=== PATIENT | male | born 1970 | race Caucasian/White ===

== ENCOUNTER 2017-03-31 18:22 | Inpatient (IN) | payer OTHER ==
[~2017-03-31] VITALS: Ht 188 cm; Wt 108.0 kg
[~2017-03-31 18:22] MED LIST: ADDERALL XR 3030 MG PO; ADDERALL30 MG PO; ADVIL,NUPRIN,M200 MG PO; ALPRAZOLAM2 MG PO; ATARAX,VISTARIL25 MG PO; Adderall XR PO; BUTALBITAL COM1 EAC1 PO; Bactrim,Septra DS 80 PO; CALCIUM + VITA1 EACH; CALCIUM 600 +1 EAC1 PO; CALCIUM 600 +1 EAC2 PO; CALCIUM 600 +1 EAC3 PO; CARVEDILOL25 MG PO; CATAPRES0.1 MG PO; CENTRUM SILV1 TABLE1 PO; CENTRUM SILVER1 EAC3 PO; CENTRUM SILVER1 EACH PO; CIPRO500 MG PO; CLEARLAX510 GM PO; CLONIDINE HCL0.1 MG PO; COBAL-10001000 MCG/2 IM; COREG25 M1 PO; COUMADIN10 MG PO; COUMADIN5 MG PO; CRANBERRY PO; CRANBERRY300 MG PO; CRANBERRY400 M1 PO; CRANBERRY400 MG PO; CRANBERRY500 MG; CRANBERRY500 MG PO; CYANOCOBAL1000 MCG/1 SC; CYANOCOBAL1000 MCG/2 IM; Calcium Carbonate/Vi PO; Coreg PO; Cranberry PO; DEXTROAMP-AMPHE30 MG PO; DORIBAX500 MG IV; DULCOLAX10 MG PR; DUONEB 2.5-0.5 M3 ML AEROSOL; DUONEB 2.5-0.5 M3 ML IH; DUONEB3 ML IH; DuoNeb IH; ELAVIL100 MG PO; ENEMA133 M1 RC; ESGIC 50-325-41 EACH PO; FEVERALL650 M1 PR; FIORICET 50-301 EACH PO; FIORICET,ESG1 TABLET PO; FLOMAX0.4 M1 PO; FLOMAX0.4 MG PO; Fioricet,Esgic,Repan PO; Flomax PO; GENTAMICIN IV; GUAIFENESIN WI120 M1 PO; HALDOL10 MG/5 ML PO; HYDROCHLOROTHIA25 MG PO; HYOSCYAMINE0.125 M2 PO; Hydrodiuril,Oretic,E PO; INVanz IV; K-DUR20 MEQ PO; K-Dur PO; KADIAN100 MG PO; KLOR-CON M2020 MEQ PO; Kadian PO; LEVAQUIN PO; LEVAQUIN250 MG PO; LORAZEPAM0.5 MG PO; LORAZEPAM1 MG PO; LOVENOX80 MG/0.8 SC; Levaquin PO; Lovenox SC; MACROBID100 MG PO; MAGNESIUM OXID200 MG PO; METHOCARBAMOL500 MG PO; METHYLPHENIDATE20 M1 PO; METOPROLOL SUCC50 MG PO; MIRALAX17 GM PO; MIRTAZAPINE45 MG PO; MORPHINE CON20 MG/M1 PO; MORPHINE SULFA100 M2 PO; MORPHINE SULFAT30 M1 PO; MORPHINE SULFAT30 M2 PO; MORPHINE SULFAT60 MG PO; MS Contin PO; MSIR30 MG PO; MYCOSTATIN15 G1 TP; Maxipime IV; Miralax, Glycolax PO; NEXIUM40 MG PO; OXYCODONE HCL15 MG PO; OXYCODONE HCL30 MG PO; OXYCODONE30 MG PO; OXYCONTIN30 MG PO; OxyCODONE PO; OxyCONTIN PO; PEPCID20 MG PO; PERCOCET 5/31 TABLET PO; PHENERGAN PO; PHENERGAN12.5 M1 PO; PHENERGAN25 MG PO; PROAIR HFA8.5 GM IH; PROCHLORPERAZIN10 MG PO; PROMETHAZINE HC25 M1 PO; PROTONIX40 MG PO; PROVENTIL HFA6.7 GM IH; Phenergan PO; Protonix PO; Proventil,Ventolin H IH; RANITIDINE HCL300 M1 PO; RANITIDINE HCL300 MG PO; REMERON15 M2 PO; REMERON30 M2 PO; RITALIN LA20 MG PO; RITALIN20 MG PO; RITALIN5 MG PO; ROBAXIN500 MG PO; Ritalin PO; Robaxin PO; SENNA PLUS TAB1 EACH PO; SEROQUEL XR150 MG PO; SEROQUEL XR400 MG PO; SEROQUEL XR50 MG PO; SEROQUEL100 MG PO; SEROQUEL200 MG PO; SEROQUEL300 MG PO; SEROQUEL400 MG PO; SEROQUEL50 MG PO; SEROquel PO; SIMVASTATIN40 M1 PO; SIMVASTATIN40 MG PO; SPIRIVA1 INHALATI IH; TEKTURNA150 MG PO; TEKTURNA300 MG PO; TYGACIL IV; Theragran PO; Tylenol Regular Stre PO; VENTOLIN HFA18 GM IH; VENTOLIN17 GM IH; VIACTIV CALC1 TABLET PO; VITAMIN B12 PO; VITAMIN B12-FO1 EACH PO; Vitamin B-12 IM; Vitamin B-12 PO; WARFARIN SODIUM4 MG PO; XANAX0.5 MG PO; XANAX2 MG PO; Xanax PO; ZANTAC300 MG PO; ZESTRIL,PRINIVI10 MG PO; ZOCOR40 MG PO; ZOFRAN4 MG PO; ZYVOX600 MG PO; Zantac PO; Zocor PO; [UNRECOGNIZED DRUG - OTHER] PO; oxyCODONE PO
[2017-03-31 19:13] LABS: EOSINOPHIL (%) 0 % (0-5); HEMATOCRIT 44.1 % (38.0-50.0); IMMATURE GRANULOCYTE (%) 0.9 % (0.0-0.7); IMMATURE GRANULOCYTE COUNT 0.2 K/uL; INSTRUMENT ABS NEUTROPHIL CT 18.2 K/uL; LYMPHOCYTE COUNT 1.1 K/uL (1.0-2.8); MCH 29.9 PG (29.0-34.0); MCHC 35.1 G/DL (30.0-36.0); MCV 85.1 FL (86-99); MEAN PLAT.VOLUME 10.3 uM^3 (9.0-12.4); MONOCYTE (%) 7.2 % (3-12); MONOCYTE COUNT 1.5 K/uL (0-0.8); NEUTROPHIL (%) 86.4 % (45-76); NEUTROPHIL COUNT 18.2 K/uL (1.8-6.4); PLATELET COUNT 182 K/uL (156-360); RBC DIS.WIDTH-CV 12.7 % (11.8-14.6); RBC DIS.WIDTH-SD 39.3 % (39-53); RED BLOOD COUNT 5.18 M/uL (4.00-5.50)
[2017-03-31 19:26] LABS: INTER. NORMALIZED RATIO 1.1; PROTHROMBIN TIME 11.7 (9.2-11.2)
[2017-03-31 19:28] LABS: CHLORIDE 103 mEq/L (99-109); POTASSIUM 3.3 mEq/L (3.7-5.4); SODIUM 136 mEq/L (136-147)
[2017-03-31 19:30] LABS: GLUCOSE 116 mg/dL (70-99)
[2017-03-31 19:31] LABS: ANION GAP 10 MEQ/L (2-14)
[2017-03-31 19:32] LABS: TOTAL BILIRUBIN 2.6 mg/dL (0.0-1.0)
[2017-03-31 19:33] LABS: ALKALINE PHOSPHATASE 79 IU/L (3-129)
[2017-03-31 19:34] LABS: GFR ESTIMATE (CALCULATED) 46 mL/min/
[2017-03-31 19:35] LABS: UREA NITROGEN (BUN) 17 mg/dL (9-23)
[2017-03-31 19:37] LABS: LIPASE 8 U/L (1.0-51.0)
[2017-03-31 21:16] LABS: ADD MIUA? YES; BILIRUBIN NEGATIVE; BLOOD MODERATE; COLOR YELLOW ((YELLOW)); GLUCOSE (STRIP) NEGATIVE; KETONES NEGATIVE; LEUKOCYTES LARGE; NITRITE NEGATIVE; PROTEIN (STRIP) 30; SPECIFIC GRAVITY 1.031 (1.000-1.030); UROBILINOGEN 0.2 MG/DL (0.2-1.0)
[2017-03-31 21:26] LABS: BACTERIA RARE /HPF; EPITHELIAL CELLS NONE SEEN /HPF; MUCUS TRACE /LPF; UCUL ADDED? YES; WHITE BLOOD CELLS TNTC /HPF (0-5)
[2017-03-31] MEDS ORDERED: ALPRAZOLAM2 MG PO (23:01)
[2017-03-31] MEDS ORDERED: MAGNESIUM400 M1 PO (23:01)
[2017-03-31] MEDS ORDERED: DEPAKOTE500 MG PO (23:03)
[2017-03-31] MEDS ORDERED: WARFARIN SODIUM10 MG PO (23:03)
[2017-03-31] MEDS ORDERED: HYDROXYZINE HCL25 MG PO (23:03)
[2017-03-31] MEDS ORDERED: ESCITALOPRAM OX20 MG PO (23:03)
[2017-03-31] MEDS ORDERED: LANTUS 10100 UNITS/ SC (23:04)
[2017-03-31] MEDS ORDERED: NOVOLOG 10100 UNITS/ SC (23:04)
[2017-03-31] MEDS ORDERED: TUMS500 MG PO (23:04)
[2017-03-31] MEDS ORDERED: CRANBERRY 4001 EAC1 PO (23:04)
[2017-03-31] MEDS ORDERED: METFORMIN HCL500 MG PO (23:05)
[2017-04-01 00:48] VITALS: BP 107/62
[2017-04-01 06:42] LABS: HEMATOCRIT 39.4 % (38.0-50.0); MCH 29.6 PG (29.0-34.0); MCHC 33.8 G/DL (30.0-36.0); MCV 87.6 FL (86-99); MEAN PLAT.VOLUME 10.6 uM^3 (9.0-12.4); PLATELET COUNT 161 K/uL (156-360); WHITE BLOOD COUNT 14.3 K/uL (4.1-10.2)
[2017-04-01 07:03] LABS: ANION GAP 10 MEQ/L (2-14); CHLORIDE 109 MEQ/L (99-109); GFR ESTIMATE (CALCULATED) 58 mL/min/; GLUCOSE 174 mg/dL (70-99); POTASSIUM 3.9 MEQ/L (3.7-5.4); SAMPLE HEMOLYSIS CHECK 0; SAMPLE ICTERIC CHECK 0; SAMPLE LIPEMIA CHECK 0; SODIUM 140 MEQ/L (136-147); UREA NITROGEN (BUN) 16 mg/dL (9-23)
[2017-04-01 07:40] VITALS: BP 126/75
[2017-04-01 10:58] VITALS: BP 116/72
[2017-04-01 12:49] LABS: POINT-OF-CARE METER ID UU13113675
[2017-04-01 16:24] VITALS: BP 122/76
[2017-04-01 20:01] VITALS: BP 124/77
[2017-04-01 23:07] VITALS: BP 137/64
[2017-04-02 02:45] LABS: EOSINOPHIL (%) 0 % (0-5); HEMATOCRIT 39.2 % (38.0-50.0); IMMATURE GRANULOCYTE (%) 0.8 % (0.0-0.7); IMMATURE GRANULOCYTE COUNT 0.2 K/uL; INSTRUMENT ABS NEUTROPHIL CT 19.5 K/uL; LYMPHOCYTE COUNT 1.4 K/uL (1.0-2.8); MCH 29.4 PG (29.0-34.0); MCHC 34.2 G/DL (30.0-36.0); MEAN PLAT.VOLUME 10.6 uM^3 (9.0-12.4); MONOCYTE (%) 5.7 % (3-12); MONOCYTE COUNT 1.3 K/uL (0-0.8); NEUTROPHIL COUNT 19.5 K/uL (1.8-6.4); PLATELET COUNT 156 K/uL (156-360); RBC DIS.WIDTH-SD 40.3 % (39-53); RED BLOOD COUNT 4.56 M/uL (4.00-5.50); WHITE BLOOD COUNT 22.4 K/uL (4.1-10.2)
[2017-04-02 03:52] VITALS: BP 102/58
[2017-04-02 05:46] LABS: POINT-OF-CARE METER ID UU13113725
[2017-04-02 07:24] VITALS: BP 127/63
[2017-04-02 09:42] LABS: INTER. NORMALIZED RATIO 1.1; PROTHROMBIN TIME 11.4 (9.2-11.2); PTT 39.7 (25-32)
[2017-04-02 10:33] LABS: ANION GAP 8 MEQ/L (2-14); CHLORIDE 112 MEQ/L (99-109); GFR ESTIMATE (CALCULATED) > 59 mL/min/; GLUCOSE 141 mg/dL (70-99); POTASSIUM 3.4 MEQ/L (3.7-5.4); SAMPLE HEMOLYSIS CHECK 0; SAMPLE ICTERIC CHECK 0; SAMPLE LIPEMIA CHECK 0; SODIUM 142 MEQ/L (136-147); UREA NITROGEN (BUN) 18 mg/dL (9-23)
[2017-04-02 12:00] VITALS: BP 99/63
[2017-04-02 12:04] LABS: POINT-OF-CARE METER ID UU13113725
[2017-04-02 15:00] VITALS: BP 134/70
[2017-04-02 17:40] LABS: POINT-OF-CARE METER ID UU13113725
[2017-04-02 19:38] VITALS: BP 139/75
[2017-04-02 21:34] LABS: POINT-OF-CARE METER ID UU13113725
[2017-04-02 23:50] VITALS: BP 137/76
[2017-04-03 03:24] VITALS: BP 140/70
[2017-04-03 06:37] LABS: ANION GAP 8 MEQ/L (2-14); CHLORIDE 110 MEQ/L (99-109); GFR ESTIMATE (CALCULATED) > 59 mL/min/; POTASSIUM 3.3 MEQ/L (3.7-5.4); SAMPLE HEMOLYSIS CHECK 0; SAMPLE ICTERIC CHECK 0; SAMPLE LIPEMIA CHECK 0; SODIUM 142 MEQ/L (136-147); UREA NITROGEN (BUN) 17 mg/dL (9-23)
[2017-04-03 06:49] LABS: GLUCOSE 85 mg/dL (70-99)
[2017-04-03 07:33] VITALS: BP 131/72
[2017-04-03 07:38] LABS: POINT-OF-CARE METER ID UU13113725
[2017-04-03 10:56] LABS: POINT-OF-CARE METER ID UU13113725
[2017-04-03 11:14] VITALS: BP 142/86
[2017-04-03 12:27] LABS: EOSINOPHIL (%) 0.6 % (0-5); EOSINOPHIL COUNT 0.1 K/uL (0-0.3); IMMATURE GRANULOCYTE (%) 1.1 % (0.0-0.7); IMMATURE GRANULOCYTE COUNT 0.1 K/uL; INSTRUMENT ABS NEUTROPHIL CT 8.1 K/uL; LYMPHOCYTE COUNT 1.9 K/uL (1.0-2.8); MCH 29.2 PG (29.0-34.0); MCHC 34.5 G/DL (30.0-36.0); MCV 84.7 FL (86-99); MEAN PLAT.VOLUME 10.3 uM^3 (9.0-12.4); MONOCYTE (%) 6.6 % (3-12); MONOCYTE COUNT 0.7 K/uL (0-0.8); NEUTROPHIL (%) 73.9 % (45-76); NEUTROPHIL COUNT 8.1 K/uL (1.8-6.4); PLATELET COUNT 165 K/uL (156-360); RBC DIS.WIDTH-CV 12.9 % (11.8-14.6); RBC DIS.WIDTH-SD 40.2 % (39-53); RED BLOOD COUNT 4.72 M/uL (4.00-5.50); WHITE BLOOD COUNT 10.9 K/uL (4.1-10.2)
[2017-04-03 15:47] VITALS: BP 148/67
[2017-04-03 15:51] LABS: POINT-OF-CARE METER ID UU13113725
[2017-04-03 19:34] VITALS: BP 124/68
[2017-04-03 21:17] LABS: POINT-OF-CARE METER ID UU13113725
[2017-04-04] VITALS (7 sets, daily range): BP systolic 116–145; BP diastolic 61–76
[2017-04-04 05:44] LABS: EOSINOPHIL (%) 1.8 % (0-5); EOSINOPHIL COUNT 0.2 K/uL (0-0.3); HEMATOCRIT 38.7 % (38.0-50.0); IMMATURE GRANULOCYTE (%) 2.2 % (0.0-0.7); IMMATURE GRANULOCYTE COUNT 0.2 K/uL; INSTRUMENT ABS NEUTROPHIL CT 6.5 K/uL; LYMPHOCYTE COUNT 1.7 K/uL (1.0-2.8); MCHC 35.1 G/DL (30.0-36.0); MCV 85.2 FL (86-99); MEAN PLAT.VOLUME 10.4 uM^3 (9.0-12.4); MONOCYTE (%) 8.4 % (3-12); MONOCYTE COUNT 0.8 K/uL (0-0.8); NEUTROPHIL (%) 69.9 % (45-76); NEUTROPHIL COUNT 6.5 K/uL (1.8-6.4); PLATELET COUNT 152 K/uL (156-360); RBC DIS.WIDTH-CV 12.9 % (11.8-14.6); RBC DIS.WIDTH-SD 39.8 % (39-53); RED BLOOD COUNT 4.54 M/uL (4.00-5.50); WHITE BLOOD COUNT 9.4 K/uL (4.1-10.2)
[2017-04-04 06:10] LABS: ANION GAP 5 MEQ/L (2-14); CHLORIDE 108 MEQ/L (99-109); GFR ESTIMATE (CALCULATED) > 59 mL/min/; GLUCOSE 101 mg/dL (70-99); POTASSIUM 3.5 MEQ/L (3.7-5.4); SAMPLE HEMOLYSIS CHECK 0; SAMPLE ICTERIC CHECK 0; SAMPLE LIPEMIA CHECK 0; SODIUM 140 MEQ/L (136-147); UREA NITROGEN (BUN) 14 mg/dL (9-23)
[2017-04-04 06:16] LABS: POINT-OF-CARE METER ID UU13113725
[2017-04-04 12:11] LABS: POINT-OF-CARE METER ID UU13113725
[2017-04-04 16:25] LABS: POINT-OF-CARE METER ID UU13113725
[2017-04-04 20:59] LABS: POINT-OF-CARE METER ID UU13113725
[2017-04-05 04:11] VITALS: BP 138/69
[2017-04-05 06:07] LABS: POINT-OF-CARE METER ID UU13113725
[2017-04-05 07:07] LABS: EOSINOPHIL (%) 2.1 % (0-5); EOSINOPHIL COUNT 0.2 K/uL (0-0.3); HEMATOCRIT 40.7 % (38.0-50.0); IMMATURE GRANULOCYTE (%) 3.6 % (0.0-0.7); IMMATURE GRANULOCYTE COUNT 0.4 K/uL; INSTRUMENT ABS NEUTROPHIL CT 7.5 K/uL; MCH 29.8 PG (29.0-34.0); MCHC 35.4 G/DL (30.0-36.0); MCV 84.1 FL (86-99); MEAN PLAT.VOLUME 10.5 uM^3 (9.0-12.4); MONOCYTE (%) 8.2 % (3-12); MONOCYTE COUNT 0.9 K/uL (0-0.8); NEUTROPHIL (%) 67.9 % (45-76); NEUTROPHIL COUNT 7.5 K/uL (1.8-6.4); PLATELET COUNT 161 K/uL (156-360); RBC DIS.WIDTH-CV 12.7 % (11.8-14.6); RBC DIS.WIDTH-SD 38.5 % (39-53); RED BLOOD COUNT 4.84 M/uL (4.00-5.50); WHITE BLOOD COUNT 11.1 K/uL (4.1-10.2)
[2017-04-05 07:32] LABS: ANION GAP 9 MEQ/L (2-14); CHLORIDE 104 MEQ/L (99-109); GFR ESTIMATE (CALCULATED) > 59 mL/min/; GLUCOSE 99 mg/dL (70-99); POTASSIUM 3.4 MEQ/L (3.7-5.4); SAMPLE HEMOLYSIS CHECK 0; SAMPLE ICTERIC CHECK 0; SAMPLE LIPEMIA CHECK 0; SODIUM 138 MEQ/L (136-147); UREA NITROGEN (BUN) 14 mg/dL (9-23)
[2017-04-05 08:01] VITALS: BP 119/69
[2017-04-05 11:28] LABS: POINT-OF-CARE METER ID UU13113725
[2017-04-05] MEDS ORDERED: XARELTO20 MG PO (16:15)
[2017-04-05] MEDS ORDERED: CIPROFLOXACIN500 M1 PO (16:15)
[2017-04-05 16:50] LABS: POINT-OF-CARE METER ID UU13113725
== END 2017-04-05 17:49 | disposition home health service (06) | DRG 871 ==
LOC: EME 18:22 → EDOF 22:42 → 5EAST 22:42 → EDOF 04-01 00:36 → 5EAST 04-01 00:46
PROVIDERS: Emergency Medicine; Hospitalist; Internal Medicine
DX: A41.59 Other Gram-negative sepsis (principal); R65.21 Severe sepsis with septic shock; N17.9 Acute kidney failure, unspecified; G93.1 Anoxic brain damage, not elsewhere classified; N31.9 Neuromuscular dysfunction of bladder, unspecified; I48.91 Unspecified atrial fibrillation; E11.65 Type 2 diabetes mellitus with hyperglycemia; I50.9 Heart failure, unspecified; F11.20 Opioid dependence, uncomplicated; I11.0 Hypertensive heart disease with heart failure; N13.6 Pyonephrosis; N20.2 Calculus of kidney with calculus of ureter; J44.9 Chronic obstructive pulmonary disease, unspecified; D64.9 Anemia, unspecified; G89.4 Chronic pain syndrome; R26.2 Difficulty in walking, not elsewhere classified; N10 Acute pyelonephritis; K59.00 Constipation, unspecified; R31.0 Gross hematuria; R45.1 Restlessness and agitation; G40.909 Epilepsy, unspecified, not intractable, without status epilepticus; K21.9 Gastro-esophageal reflux disease without esophagitis; F32.9 Major depressive disorder, single episode, unspecified; E87.6 Hypokalemia; F17.210 Nicotine dependence, cigarettes, uncomplicated; E66.9 Obesity, unspecified; B96.4 Proteus (mirabilis) (morganii) as the cause of diseases classified elsewhere; F32.89 Other specified depressive episodes; T83.511A Infection and inflammatory reaction due to indwelling urethral catheter, initial encounter; T50.995A Adverse effect of other drugs, medicaments and biological substances, initial encounter; Z86.718 Personal history of other venous thrombosis and embolism; Z87.440 Personal history of urinary (tract) infections; Z86.73 Personal history of transient ischemic attack (TIA), and cerebral infarction without residual deficits; Z86.711 Personal history of pulmonary embolism; Z87.442 Personal history of urinary calculi; Z68.30 Body mass index [BMI] 30.0-30.9, adult; Z86.74 Personal history of sudden cardiac arrest; Z88.1 Allergy status to other antibiotic agents
CPT/HCPCS: 74000; 74177; 74420; 80048; 80053; 81003; 82565; 82948; 83605; 83690; 84520; 85025; 85027; 85610; 85730; 87040; 87077; 87086; 87186; 87801; 94640; 94640 76; 94799; 99202; 99281; 99285; C1876; J1170; J1200; J1335; J1815; J2185; J2270; J2405; J2930; J3010; J7030; J7050; Q0169; S0028

== ENCOUNTER 2017-04-26 14:02 | Inpatient (IN) | payer OTHER ==
[~2017-04-26] VITALS: Ht 188 cm; Wt 111.6 kg
[~2017-04-26 14:02] MED LIST changes: +CIPROFLOXACIN500 M1 PO; +CRANBERRY 4001 EAC1 PO; +DEPAKOTE500 MG PO; +ESCITALOPRAM OX20 MG PO; +HYDROXYZINE HCL25 MG PO; +LANTUS 10100 UNITS/ SC; +MAGNESIUM400 M1 PO; +METFORMIN HCL500 MG PO; +NOVOLOG 10100 UNITS/ SC; +TUMS500 MG PO; +WARFARIN SODIUM10 MG PO; +XARELTO20 MG PO
[2017-04-26 14:51] LABS: EOSINOPHIL (%) 0.1 % (0-5); HEMATOCRIT 43.3 % (38.0-50.0); IMMATURE GRANULOCYTE (%) 0.6 % (0.0-0.7); IMMATURE GRANULOCYTE COUNT 0.1 K/uL; INSTRUMENT ABS NEUTROPHIL CT 13.7 K/uL; LYMPHOCYTE COUNT 1.4 K/uL (1.0-2.8); MCH 29.3 PG (29.0-34.0); MCHC 34.9 G/DL (30.0-36.0); MCV 83.9 FL (86-99); MEAN PLAT.VOLUME 10.1 uM^3 (9.0-12.4); MONOCYTE (%) 10.2 % (3-12); MONOCYTE COUNT 1.7 K/uL (0-0.8); NEUTROPHIL (%) 80.9 % (45-76); NEUTROPHIL COUNT 13.7 K/uL (1.8-6.4); PLATELET COUNT 167 K/uL (156-360); RBC DIS.WIDTH-CV 12.7 % (11.8-14.6); RED BLOOD COUNT 5.16 M/uL (4.00-5.50); WHITE BLOOD COUNT 16.9 K/uL (4.1-10.2)
[2017-04-26 15:03] LABS: CHLORIDE 100 mEq/L (99-109); POTASSIUM 3.8 mEq/L (3.7-5.4); SODIUM 134 mEq/L (136-147)
[2017-04-26 15:05] LABS: GLUCOSE 141 mg/dL (70-99)
[2017-04-26 15:06] LABS: ANION GAP 8 MEQ/L (2-14)
[2017-04-26 15:07] LABS: BICARBONATE 27.9 mEq/L (22-26); CARBOXY HGB 7.3 % (0-5); METHEMOGLOBIN 1.3 % (0-1.5); PCO2 35 mm Hg (35-45); PO2 65 mm Hg (80-100); pH 7.51 (7.35-7.45)
[2017-04-26 15:08] LABS: COMMENTS - BLOOD GASES A+C+; DEVICE RA; SITE RR
[2017-04-26 15:09] LABS: GFR ESTIMATE (CALCULATED) 50 mL/min/; UREA NITROGEN (BUN) 17 mg/dL (9-23)
[2017-04-26 15:18] LABS: CHLORIDE 98 mEq/L (99-109); POTASSIUM 3.8 mEq/L (3.7-5.4); SODIUM 134 mEq/L (136-147)
[2017-04-26 15:20] LABS: GLUCOSE 129 mg/dL (70-99); INTER. NORMALIZED RATIO 1.2; PROTHROMBIN TIME 11.9 (9.2-11.2); PTT 29.1 (25-32)
[2017-04-26 15:21] LABS: ANION GAP 10 MEQ/L (2-14)
[2017-04-26 15:22] LABS: TOTAL BILIRUBIN 3.1 mg/dL (0.0-1.0)
[2017-04-26 15:23] LABS: ALKALINE PHOSPHATASE 185 IU/L (3-129); GFR ESTIMATE (CALCULATED) 50 mL/min/
[2017-04-26 15:25] LABS: UREA NITROGEN (BUN) 17 mg/dL (9-23)
[2017-04-26 15:27] LABS: LIPASE 12 U/L (1.0-51.0)
[2017-04-26 15:29] LABS: TROP-I INTERPRETATION NEGATIVE; TROPONIN-I < 0.01 ng/mL (0.0-0.30)
[2017-04-26 16:35] LABS: ADD MIUA? YES; BILIRUBIN NEGATIVE; BLOOD MODERATE; COLOR YELLOW ((YELLOW)); GLUCOSE (STRIP) NEGATIVE; KETONES NEGATIVE; LEUKOCYTES LARGE; NITRITE POSITIVE; PROTEIN (STRIP) 100; SPECIFIC GRAVITY 1.013 (1.000-1.030)
[2017-04-26 16:55] LABS: BACTERIA RARE /HPF; EPITHELIAL CELLS RARE /HPF; MUCUS NONE SEEN /LPF; RED BLOOD CELLS 40-50 /HPF (0-5); UCUL ADDED? NO; WHITE BLOOD CELLS 30-40 /HPF (0-5)
[2017-04-26 20:45] VITALS: BP 152/70
[2017-04-26] MEDS ORDERED: ESCITALOPRAM OX20 MG PO (21:42)
[2017-04-26 23:36] VITALS: BP 116/64
[2017-04-27 04:15] VITALS: BP 129/62
[2017-04-27 05:47] LABS: POINT-OF-CARE METER ID UU13113725
[2017-04-27 06:35] LABS: ALKALINE PHOSPHATASE 137 IU/L (3-129); ANION GAP 9 MEQ/L (2-14); CHLORIDE 103 MEQ/L (99-109); DIRECT BILIRUBIN 0.6 mg/dL (0.0-0.3); GFR ESTIMATE (CALCULATED) > 59 mL/min/; GLUCOSE 118 mg/dL (70-99); POTASSIUM 3.4 MEQ/L (3.7-5.4); SAMPLE HEMOLYSIS CHECK 0; SAMPLE ICTERIC CHECK 0; SAMPLE LIPEMIA CHECK 0; SODIUM 134 MEQ/L (136-147); UREA NITROGEN (BUN) 12 mg/dL (9-23)
[2017-04-27 06:50] LABS: EOSINOPHIL (%) 0 % (0-5); HEMATOCRIT 37.2 % (38.0-50.0); IMMATURE GRANULOCYTE (%) 0.7 % (0.0-0.7); IMMATURE GRANULOCYTE COUNT 0.1 K/uL; INSTRUMENT ABS NEUTROPHIL CT 10.4 K/uL; LYMPHOCYTE COUNT 1.3 K/uL (1.0-2.8); MCH 28.7 PG (29.0-34.0); MCHC 33.9 G/DL (30.0-36.0); MCV 84.7 FL (86-99); MEAN PLAT.VOLUME 10.9 uM^3 (9.0-12.4); MONOCYTE (%) 8.1 % (3-12); NEUTROPHIL (%) 81.2 % (45-76); NEUTROPHIL COUNT 10.4 K/uL (1.8-6.4); PLATELET COUNT 118 K/uL (156-360); RBC DIS.WIDTH-CV 12.7 % (11.8-14.6); RBC DIS.WIDTH-SD 39.6 % (39-53); RED BLOOD COUNT 4.39 M/uL (4.00-5.50); WHITE BLOOD COUNT 12.8 K/uL (4.1-10.2)
[2017-04-27 08:07] VITALS: BP 131/77
[2017-04-27 11:45] LABS: POINT-OF-CARE METER ID UU13113725
[2017-04-27 12:01] VITALS: BP 122/70
[2017-04-27 14:58] VITALS: BP 124/58
[2017-04-27 15:59] LABS: POINT-OF-CARE METER ID UU13113725
[2017-04-27 20:14] VITALS: BP 121/56
[2017-04-27 21:13] LABS: POINT-OF-CARE METER ID UU13113725
[2017-04-28 00:45] VITALS: BP 128/59
[2017-04-28 04:10] VITALS: BP 110/68
[2017-04-28 07:31] VITALS: BP 151/77
[2017-04-28 09:35] LABS: EOSINOPHIL (%) 1.3 % (0-5); EOSINOPHIL COUNT 0.1 K/uL (0-0.3); HEMATOCRIT 35.8 % (38.0-50.0); IMMATURE GRANULOCYTE (%) 0.7 % (0.0-0.7); IMMATURE GRANULOCYTE COUNT 0.1 K/uL; LYMPHOCYTE COUNT 1.4 K/uL (1.0-2.8); MCH 29.9 PG (29.0-34.0); MCHC 35.5 G/DL (30.0-36.0); MCV 84.2 FL (86-99); MEAN PLAT.VOLUME 11.2 uM^3 (9.0-12.4); MONOCYTE (%) 7.2 % (3-12); MONOCYTE COUNT 0.7 K/uL (0-0.8); PLATELET COUNT 104 K/uL (156-360); RED BLOOD COUNT 4.25 M/uL (4.00-5.50); WHITE BLOOD COUNT 9.2 K/uL (4.1-10.2)
[2017-04-28 10:04] LABS: ALKALINE PHOSPHATASE 131 IU/L (3-129); ANION GAP 10 MEQ/L (2-14); CHLORIDE 102 MEQ/L (99-109); GFR ESTIMATE (CALCULATED) > 59 mL/min/; POTASSIUM 3.4 MEQ/L (3.7-5.4); SAMPLE HEMOLYSIS CHECK 0; SAMPLE ICTERIC CHECK 0; SAMPLE LIPEMIA CHECK 0; SODIUM 134 MEQ/L (136-147); UREA NITROGEN (BUN) 14 mg/dL (9-23)
[2017-04-28 10:08] LABS: GLUCOSE 192 mg/dL (70-99); TOTAL BILIRUBIN 1.2 MG/DL (0.0-1.0)
[2017-04-28] MEDS ORDERED: XARELTO20 MG PO (10:08)
[2017-04-28 10:21] LABS: HBSG INDEX 0.24; HPCA INDEX 0.17
[2017-04-28 10:22] LABS: ANTI-HEPATITIS A VIRUS (IGM) Nonreactive; HAV INDEX 0.23
[2017-04-28 10:24] LABS: ANTI-HEPATITIS B CORE (IGM) Nonreactive; HBC IgM INDEX 0.05
[2017-04-28 11:05] VITALS: BP 132/80
[2017-04-28 15:16] VITALS: BP 150/80
[2017-04-28 20:15] VITALS: BP 130/74
[2017-04-29 00:38] VITALS: BP 117/73
[2017-04-29 04:12] VITALS: BP 142/66
[2017-04-29 06:30] LABS: HEMATOCRIT 38.8 % (38.0-50.0); MCH 28.5 PG (29.0-34.0); MCHC 34.3 G/DL (30.0-36.0); MCV 83.3 FL (86-99); MEAN PLAT.VOLUME 10.7 uM^3 (9.0-12.4); RBC DIS.WIDTH-CV 12.8 % (11.8-14.6); RBC DIS.WIDTH-SD 38.9 % (39-53); RED BLOOD COUNT 4.66 M/uL (4.00-5.50); WHITE BLOOD COUNT 9.2 K/uL (4.1-10.2)
[2017-04-29 06:35] LABS: PLATELET COUNT 148 K/uL (156-360)
[2017-04-29 06:50] LABS: ANION GAP 11 MEQ/L (2-14); CHLORIDE 103 MEQ/L (99-109); GFR ESTIMATE (CALCULATED) > 59 mL/min/; GLUCOSE 90 mg/dL (70-99); POTASSIUM 3.6 MEQ/L (3.7-5.4); SAMPLE HEMOLYSIS CHECK 0; SAMPLE ICTERIC CHECK 0; SAMPLE LIPEMIA CHECK 0; SODIUM 138 MEQ/L (136-147); UREA NITROGEN (BUN) 17 mg/dL (9-23)
[2017-04-29 08:14] VITALS: BP 115/70
[2017-04-29 12:06] LABS: POINT-OF-CARE METER ID UU13113725
[2017-04-29 16:00] VITALS: BP 116/73
[2017-04-29 22:14] LABS: POINT-OF-CARE METER ID UU13113725
[2017-04-29 23:38] VITALS: BP 119/62
[2017-04-30 08:26] VITALS: BP 101/57
[2017-04-30 09:46] LABS: HEMATOCRIT 38.8 % (38.0-50.0); MCH 29.6 PG (29.0-34.0); MCHC 34.5 G/DL (30.0-36.0); MCV 85.7 FL (86-99); MEAN PLAT.VOLUME 10.8 uM^3 (9.0-12.4); PLATELET COUNT 157 K/uL (156-360); RBC DIS.WIDTH-CV 13.2 % (11.8-14.6); RBC DIS.WIDTH-SD 41.3 % (39-53); RED BLOOD COUNT 4.53 M/uL (4.00-5.50); WHITE BLOOD COUNT 8.2 K/uL (4.1-10.2)
[2017-04-30 10:10] LABS: ANION GAP 11 MEQ/L (2-14); CHLORIDE 104 MEQ/L (99-109); GFR ESTIMATE (CALCULATED) > 59 mL/min/; GLUCOSE 124 mg/dL (70-99); POTASSIUM 4.5 MEQ/L (3.7-5.4); SAMPLE HEMOLYSIS CHECK 0; SAMPLE ICTERIC CHECK 0; SAMPLE LIPEMIA CHECK 0; SODIUM 138 MEQ/L (136-147); UREA NITROGEN (BUN) 25 mg/dL (9-23)
[2017-04-30 18:05] VITALS: BP 107/57
[2017-05-01 00:30] VITALS: BP 119/67
[2017-05-01 05:58] LABS: POINT-OF-CARE METER ID UU13113725
[2017-05-01 06:50] VITALS: BP 111/60
[2017-05-01 09:01] LABS: HEMATOCRIT 39.2 % (38.0-50.0); MCH 29.8 PG (29.0-34.0); MCHC 34.9 G/DL (30.0-36.0); MCV 85.2 FL (86-99); MEAN PLAT.VOLUME 10.1 uM^3 (9.0-12.4); PLATELET COUNT 155 K/uL (156-360); RBC DIS.WIDTH-CV 13.2 % (11.8-14.6); WHITE BLOOD COUNT 9.2 K/uL (4.1-10.2)
[2017-05-01 10:10] LABS: ANION GAP 12 MEQ/L (2-14); CHLORIDE 105 MEQ/L (99-109); GFR ESTIMATE (CALCULATED) 54 mL/min/; GLUCOSE 84 mg/dL (70-99); POTASSIUM 4.5 MEQ/L (3.7-5.4); SAMPLE HEMOLYSIS CHECK 0; SAMPLE ICTERIC CHECK 0; SAMPLE LIPEMIA CHECK 0; SODIUM 141 MEQ/L (136-147); UREA NITROGEN (BUN) 23 mg/dL (9-23)
[2017-05-01 15:05] VITALS: BP 116/64
[2017-05-02 06:21] LABS: POINT-OF-CARE METER ID UU13113725
[2017-05-02 15:30] VITALS: BP 107/62
[2017-05-03 06:03] LABS: POINT-OF-CARE USER ID 610071303
[2017-05-03 06:32] LABS: HEMATOCRIT 37.2 % (38.0-50.0); MCH 28.5 PG (29.0-34.0); MCHC 33.3 G/DL (30.0-36.0); MCV 85.5 FL (86-99); MEAN PLAT.VOLUME 9.9 uM^3 (9.0-12.4); RBC DIS.WIDTH-CV 12.9 % (11.8-14.6); RBC DIS.WIDTH-SD 40.5 % (39-53); RED BLOOD COUNT 4.35 M/uL (4.00-5.50); WHITE BLOOD COUNT 11.2 K/uL (4.1-10.2)
[2017-05-03 06:34] LABS: PLATELET COUNT 223 K/uL (156-360)
[2017-05-03 06:38] LABS: INTER. NORMALIZED RATIO 1.1; PTT 29.5 (25-32)
[2017-05-03 06:51] LABS: ANION GAP 9 MEQ/L (2-14); CHLORIDE 100 MEQ/L (99-109); GFR ESTIMATE (CALCULATED) 54 mL/min/; GLUCOSE 89 mg/dL (70-99); POTASSIUM 4.7 MEQ/L (3.7-5.4); SAMPLE HEMOLYSIS CHECK 0; SAMPLE ICTERIC CHECK 0; SAMPLE LIPEMIA CHECK 0; SODIUM 136 MEQ/L (136-147); UREA NITROGEN (BUN) 20 mg/dL (9-23)
[2017-05-03 07:26] VITALS: BP 106/69
[2017-05-03 11:25] LABS: POINT-OF-CARE METER ID UU13113725
[2017-05-03] MEDS ORDERED: QUETIAPINE FUM400 MG PO (14:40)
[2017-05-03] MEDS ORDERED: QUETIAPINE FUMA25 MG PO (14:40)
[2017-05-03] MEDS ORDERED: QUETIAPINE FUM100 MG PO (14:40)
[2017-05-03 16:00] VITALS: BP 114/64
[2017-05-03 22:02] LABS: POINT-OF-CARE METER ID UU13113725
[2017-05-04 00:10] VITALS: BP 105/54
[2017-05-04 06:36] LABS: HEMATOCRIT 37.9 % (38.0-50.0); MCH 29.6 PG (29.0-34.0); MCHC 34.6 G/DL (30.0-36.0); MCV 85.7 FL (86-99); MEAN PLAT.VOLUME 10.3 uM^3 (9.0-12.4); PLATELET COUNT 254 K/uL (156-360); RBC DIS.WIDTH-CV 12.9 % (11.8-14.6); RED BLOOD COUNT 4.42 M/uL (4.00-5.50); WHITE BLOOD COUNT 8.2 K/uL (4.1-10.2)
[2017-05-04 06:45] VITALS: BP 95/53
[2017-05-04 07:23] LABS: ANION GAP 9 MEQ/L (2-14); CHLORIDE 101 MEQ/L (99-109); GFR ESTIMATE (CALCULATED) 58 mL/min/; GLUCOSE 91 mg/dL (70-99); POTASSIUM 4.5 MEQ/L (3.7-5.4); SAMPLE HEMOLYSIS CHECK 0; SAMPLE ICTERIC CHECK 0; SAMPLE LIPEMIA CHECK 0; SODIUM 136 MEQ/L (136-147); UREA NITROGEN (BUN) 19 mg/dL (9-23)
[2017-05-04 11:52] LABS: POINT-OF-CARE METER ID UU13113725
[2017-05-04] MEDS ORDERED: LINEZOLID600 MG PO (12:06)
[2017-05-04] MEDS ORDERED: CLOTRIM ANTIFUN15 GM TP (12:28)
== END 2017-05-04 14:38 | disposition home health service (06) | DRG 698 ==
LOC: EME 14:02 → EDOF 18:31 → 5EAST 18:31
PROVIDERS: Hospitalist; Internal Medicine; Nurse Practitioner Family
DX: T83.592A Infection and inflammatory reaction due to indwelling ureteral stent, initial encounter (principal); A41.9 Sepsis, unspecified organism; R65.20 Severe sepsis without septic shock; N10 Acute pyelonephritis; F11.20 Opioid dependence, uncomplicated; G93.1 Anoxic brain damage, not elsewhere classified; N17.9 Acute kidney failure, unspecified; B95.8 Unspecified staphylococcus as the cause of diseases classified elsewhere; E11.9 Type 2 diabetes mellitus without complications; E87.6 Hypokalemia; F22 Delusional disorders; F41.9 Anxiety disorder, unspecified; F17.210 Nicotine dependence, cigarettes, uncomplicated; F39 Unspecified mood [affective] disorder; F90.9 Attention-deficit hyperactivity disorder, unspecified type; G89.29 Other chronic pain; I11.0 Hypertensive heart disease with heart failure; I50.9 Heart failure, unspecified; J44.9 Chronic obstructive pulmonary disease, unspecified; K21.9 Gastro-esophageal reflux disease without esophagitis; K59.00 Constipation, unspecified; N20.0 Calculus of kidney; N31.9 Neuromuscular dysfunction of bladder, unspecified; Z79.01 Long term (current) use of anticoagulants; Z79.4 Long term (current) use of insulin; Z79.84 Long term (current) use of oral hypoglycemic drugs; Z86.711 Personal history of pulmonary embolism; Z86.718 Personal history of other venous thrombosis and embolism; Z86.73 Personal history of transient ischemic attack (TIA), and cerebral infarction without residual deficits; Z87.440 Personal history of urinary (tract) infections; Z87.442 Personal history of urinary calculi; Z88.1 Allergy status to other antibiotic agents; Z88.8 Allergy status to other drugs, medicaments and biological substances; Z90.49 Acquired absence of other specified parts of digestive tract
CPT/HCPCS: 36600; 71275; 74177; 80048; 80053; 80074; 80076; 80170; 81003; 82803; 82948; 83605; 83690; 84484; 85025; 85027; 85610; 85730; 87040; 87077; 87186; 87801; 93005; 94640; 94640 76; 99202; 99281; 99285; J0780; J1170; J1200; J1580; J1644; J1815; J2020; J2185; J2270; J2765; J3480; J7030; J7050; Q0177

== ENCOUNTER 2018-03-08 09:22 | Emergency (ER) | payer OTHER ==
[~2018-03-08] VITALS: Ht 185.4 cm; Wt 100.9 kg
[~2018-03-08 09:22] MED LIST changes: +CLOTRIM ANTIFUN15 GM TP; +LINEZOLID600 MG PO; +QUETIAPINE FUM100 MG PO; +QUETIAPINE FUM400 MG PO; +QUETIAPINE FUMA25 MG PO
[2018-03-08 10:10] LABS: HEMOGLOBIN 16.4 G/DL (12.5-16.6); MCH 30.1 PG (29.0-34.0); MCHC 35.7 G/DL (30.0-36.0); MCV 84.4 FL (86-99); PLATELET COUNT 182 K/uL (156-360); RBC DIS.WIDTH-CV 13.5 % (11.8-14.6); RBC DIS.WIDTH-SD 41.6 % (39-53); RED BLOOD COUNT 5.45 M/uL (4.00-5.50); WHITE BLOOD COUNT 10.8 K/uL (4.1-10.2)
[2018-03-08 10:21] LABS: CHLORIDE 104 mEq/L (99-109); SODIUM 139 mEq/L (136-147)
[2018-03-08 10:22] LABS: GLUCOSE 107 mg/dL (70-99)
[2018-03-08 10:25] LABS: SERUM ETHYL ALCOHOL < 10 mg/dL
[2018-03-08 10:26] LABS: CREATININE 1.1 mg/dL (0.6-1.3); GFR ESTIMATE (CALCULATED) > 59 mL/min/ (58.99-99999)
[2018-03-08 10:27] LABS: UREA NITROGEN (BUN) 16 mg/dL (9-23)
[2018-03-08] MEDS ORDERED: NAPROSYN500 MG PO (11:24)
[2018-03-08 12:00] VITALS: BP 132/82
== END 2018-03-08 13:00 | disposition home or self-care (01) ==
LOC: EME 09:22
PROVIDERS: Emergency Medicine
DX: S80.01XA Contusion of right knee, initial encounter (principal); V49.50XA Passenger injured in collision with unspecified motor vehicles in traffic accident, initial encounter; Y92.410 Unspecified street and highway as the place of occurrence of the external cause; M54.2 Cervicalgia; E11.9 Type 2 diabetes mellitus without complications; Z79.4 Long term (current) use of insulin; I11.0 Hypertensive heart disease with heart failure; I50.9 Heart failure, unspecified; F17.200 Nicotine dependence, unspecified, uncomplicated; J44.9 Chronic obstructive pulmonary disease, unspecified; Z86.73 Personal history of transient ischemic attack (TIA), and cerebral infarction without residual deficits; F32.9 Major depressive disorder, single episode, unspecified; K21.9 Gastro-esophageal reflux disease without esophagitis; G89.29 Other chronic pain; Z86.718 Personal history of other venous thrombosis and embolism; Z88.6 Allergy status to analgesic agent; Z88.1 Allergy status to other antibiotic agents; Z88.0 Allergy status to penicillin
CPT/HCPCS: 70450; 72125; 73564; 80048; 85027; 99281; 99285; G0480